=== PATIENT | male | born 1975 | race Hispanic/Latino ===

== ENCOUNTER 2021-01-08 08:44 | Outpatient (CLI) | payer OTHER ==
--- NOTE | 2021-01-08 09:38 | XRay Report ---
CERVICAL SPINE 4 VIEWS INDICATION: NECK PAIN. COMPARISON: None. IMPRESSION: There has been previous anterior fusion from C4-C6, correlate with history. Alignment ap pears anatomic. 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 No acute osseous or soft tissue abnormality. Signer Name: Maurilio Orta Jr, MD Signed: 01/08/2021 9:34 AM Workstation Name: [id number]
== END 2021-01-08 08:45 | disposition home or self-care (01) ==
LOC: XRAY 08:44
PROVIDERS: ATTEND Internal Medicine
DX: M47.812 Spondylosis without myelopathy or radiculopathy, cervical region (principal)
CPT/HCPCS: 72040